=== PATIENT | female | born 1990 | race Two or more races ===

== ENCOUNTER 2020-03-24 19:07 | Emergency (ER) | payer MEDICAID ==
[~2020-03-24] VITALS: Ht 167.6 cm; Wt 67.8 kg
[~2020-03-24 19:07] MED LIST: ALBU2.5V11; MOME13HF2; PNV1TABL47
--- NOTE | 2020-03-24 19:27 | NUR ---
FIRST PT CONTACT: PT STATES SHE WAS TOLD TO COME IN TODAY BY HER OB AFTER CALLING TO TELL THEM SHE HAS BEEN BLEEDING SINCE March AND THOUGHT IT WAS HER PERIOD BUT SINCE THEN HASNT STOPPED. OB HAD HER TAKE A TEST, ALL THREE WERE POSITIVE. OB WANTS TO R/O ECTOPIC OR ANY OTHER ABNORMALITIES WITH THE PREGNANCIES. STATES SHE HAS ONLY SCANT-SMALL AMOUNTS OF BLOOD AND FEELS LIKE SHES SPOTTING. PT HAS A HX OF DIFFICULT PREGNANCIES IN THE PAST WITH HER SON BEING BORN AT 24 WEEKS.
--- NOTE | 2020-03-24 19:59 | NUR ---
PT RESTING IN [facility], [facility], AMBULATED TO AND FROM RESTROOM WITH A SMOOTH AND STEADY GAIT. AT BS, VSS, WCTM.
[2020-03-24 20:11] LABS: BASOPHILS # (AUTO) 0.09 x10^3/uL (0-0.1); BASOPHILS % (AUTO) 1 % (0-1); EOSINOPHILS # (AUTO) 0.67 x10^3/uL (0-0.4); EOSINOPHILS % (AUTO) 7 % (1-7); LYMPHOCYTES # (AUTO) 3.05 x10^3/uL (1-3.4); LYMPHOCYTES % (AUTO) 32 % (22-44); MD NO; MEAN CORPUSCULAR HEMOGLOBIN 29.1 pg (27.0-34.8); MEAN CORPUSCULAR HGB CONC 33.3 g/dL (32.4-35.8); MEAN CORPUSCULAR VOLUME 87.3 fL (80-100); MEAN PLATELET VOLUME 8.7 fL (7.4-10.4); MONOCYTES # (AUTO) 0.56 x10^3/uL (0.2-0.8); MONOCYTES % (AUTO) 6 % (2-9); NEUTROPHILS # (AUTO) 5.21 x10^3/uL (1.8-6.8); NEUTROPHILS % (AUTO) 54 % (42-75); PLATELET COUNT 323 x10^3/uL (130-400); RED BLOOD COUNT 4.72 x10^6/uL (3.82-5.3); RED CELL DISTRIBUTION WIDTH 12.8 % (9.6-15.2)
[2020-03-24 20:13] LABS: MICROSCOPIC NOT IND
--- NOTE | 2020-03-24 20:43 | NUR ---
LATE ENTRY: PT TO US VIA ROBBY URIAS, NO CHANGE IN CONDITION.
--- NOTE | 2020-03-24 21:21 | NUR ---
PT IN ULTRASOUND AT THIS TIME. WILL RECHECK VITALS WHEN BACK.
--- NOTE | 2020-03-24 21:31 | NUR ---
PT BACK FROM US. NAD, NO CHANGE IN CONDITION, AT , [facility].
--- NOTE | 2020-03-24 22:19 | NUR ---
PT RESTING ON GURNEY, AT , GIVEN WATER PER REQUEST. NAD. DENIES ANY ADDITIONAL NEEDS AT THIS TIME. WAITING FOR BALANCE TRUER CONSULT. WCTM.
[2020-03-24 22:21] VITALS: BP 108/71
--- NOTE | 2020-03-24 22:46 | NUR ---
Patient/SPOUSE given discharge instructions and they have confirmed that they understand the instructions. Patient ambulatory with steady gait. DENIES ADDITIONAL NEEDS OR QUESTIONS AT THIS TIME. NAD. VSS.
== END 2020-03-24 23:00 | disposition home or self-care (01) ==
LOC: ED 19:48
DX: O20.0 Threatened abortion (principal); R10.9 Unspecified abdominal pain; R55 Syncope and collapse; J45.909 Unspecified asthma, uncomplicated; Z3A.08 8 weeks gestation of pregnancy
CPT/HCPCS: 36415; 76801; 81003; 84702; 85025; 86901; 99285

== ENCOUNTER 2020-03-26 13:22 | Emergency (ER) | payer MEDICAID ==
[~2020-03-26] VITALS: Ht 165.1 cm; Wt 66.4 kg
[2020-03-26 14:40] LABS: BASOPHILS # (AUTO) 0.02 x10^3/uL (0-0.1); BASOPHILS % (AUTO) 0 % (0-1); EOSINOPHILS # (AUTO) 0.62 x10^3/uL (0-0.4); EOSINOPHILS % (AUTO) 9 % (1-7); LYMPHOCYTES # (AUTO) 2.17 x10^3/uL (1-3.4); LYMPHOCYTES % (AUTO) 30 % (22-44); MEAN CORPUSCULAR HEMOGLOBIN 29.1 pg (27.0-34.8); MEAN CORPUSCULAR HGB CONC 33.4 g/dL (32.4-35.8); MEAN CORPUSCULAR VOLUME 86.9 fL (80-100); MEAN PLATELET VOLUME 8.6 fL (7.4-10.4); MONOCYTES # (AUTO) 0.52 x10^3/uL (0.2-0.8); MONOCYTES % (AUTO) 7 % (2-9); NEUTROPHILS # (AUTO) 3.81 x10^3/uL (1.8-6.8); NEUTROPHILS % (AUTO) 53 % (42-75); PLATELET COUNT 330 x10^3/uL (130-400); RED BLOOD COUNT 4.76 x10^6/uL (3.82-5.3); RED CELL DISTRIBUTION WIDTH 12.8 % (9.6-15.2)
[2020-03-26 14:41] LABS: MD NO
[2020-03-26 15:22] VITALS: BP 117/63
--- NOTE | 2020-03-26 15:25 | NUR ---
OB PAGED BY JEFFREY PT UPDATED ON POC
== END 2020-03-26 15:59 | disposition home or self-care (01) ==
LOC: ED 14:38
DX: O20.0 Threatened abortion (principal); R10.9 Unspecified abdominal pain; Z3A.01 Less than 8 weeks gestation of pregnancy
CPT/HCPCS: 36415; 84702; 85025; 99283

== ENCOUNTER 2020-04-17 20:38 | Emergency (ER) | payer MEDICAID ==
[~2020-04-17] VITALS: Ht 165.1 cm; Wt 69.3 kg
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
[2020-04-17 21:27] LABS: BASOPHILS # (AUTO) 0.03 x10^3/uL (0-0.1); BASOPHILS % (AUTO) 0 % (0-1); EOSINOPHILS # (AUTO) 0.43 x10^3/uL (0-0.4); EOSINOPHILS % (AUTO) 5 % (1-7); LYMPHOCYTES # (AUTO) 2.43 x10^3/uL (1-3.4); LYMPHOCYTES % (AUTO) 28 % (22-44); MD NO; MEAN CORPUSCULAR HEMOGLOBIN 29.1 pg (27.0-34.8); MEAN CORPUSCULAR VOLUME 88.2 fL (80-100); MEAN PLATELET VOLUME 8.2 fL (7.4-10.4); MONOCYTES # (AUTO) 0.67 x10^3/uL (0.2-0.8); MONOCYTES % (AUTO) 8 % (2-9); NEUTROPHILS # (AUTO) 5.01 x10^3/uL (1.8-6.8); NEUTROPHILS % (AUTO) 59 % (42-75); PLATELET COUNT 332 x10^3/uL (130-400); RED BLOOD COUNT 4.46 x10^6/uL (3.82-5.3); RED CELL DISTRIBUTION WIDTH 12.4 % (9.6-15.2)
[2020-04-17] MEDS ORDERED: MORPHINE SULFATE 4 MG/ML, 1ML IVPush PRN (21:30)
[2020-04-17] MEDS ORDERED: ONDANSETRON 2MG/ML, 2ML IVPush ONE (21:30)
[2020-04-17 21:36] LABS: ALANINE AMINOTRANSFERASE 30 U/L (12-78); ALBUMIN 3.4 g/dL (3.4-5.0); ANION GAP 6 mmol/L (5-15); CHLORIDE 109 mmol/L (98-107); CREATININE 0.71 mg/dL (0.55-1.02)
[2020-04-17 21:41] LABS: ALKALINE PHOSPHATASE 66 U/L (45-117); BILIRUBIN,TOTAL 0.3 mg/dL (0.2-1.0); TOTAL PROTEIN 7.2 g/dL (6.4-8.2)
--- NOTE | 2020-04-17 21:53 | NUR ---
PT EDUCATED ON PLAN OF CARE. PT TO GET US INSTEAD OF CT BECAUSE OF THE CHANCE SHE MAY BE
--- NOTE | 2020-04-17 22:18 | NUR ---
REPORT RECEIVED FROM BUCKY SANFORD
[2020-04-17] MEDS ORDERED: ONDANSETRON 2MG/ML, 2ML ONE (22:27)
[2020-04-17] MEDS ORDERED: MORPHINE SULFATE 4 MG/ML, 1ML ONE (22:27)
--- NOTE | 2020-04-17 22:32 | NUR ---
PATIENT MEDICATED PER EMAR DUE TO UNBARABLE PAIN DURING SPLINTING
--- NOTE | 2020-04-17 22:50 | NUR ---
PATIENT IN US
[2020-04-17 23:30] VITALS: BP 111/74
--- NOTE | 2020-04-18 00:30 | NUR ---
CALL PLACED TO US TO GET UPDATE ON TRANSABD US. STATES HE WILL CONTACT STAT RAD
--- NOTE | 2020-04-18 01:27 | NUR ---
Patient given discharge instructions and they have confirmed that they understand the instructions. Patient ambulatory with steady gait.
== END 2020-04-18 01:29 | disposition home or self-care (01) ==
LOC: ED 21:28
DX: O03.4 Incomplete spontaneous abortion without complication (principal); S20.219A Contusion of unspecified front wall of thorax, initial encounter; S30.1XXA Contusion of abdominal wall, initial encounter; S50.311A Abrasion of right elbow, initial encounter; R10.13 Epigastric pain; M79.602 Pain in left arm; J45.909 Unspecified asthma, uncomplicated; V89.2XXA Person injured in unspecified motor-vehicle accident, traffic, initial encounter; Y93.89 Activity, other specified; Y92.410 Unspecified street and highway as the place of occurrence of the external cause; Y99.8 Other external cause status
CPT/HCPCS: 29125; 36415; 76700; 76856; 80053; 83690; 84702; 85025; 96374; 96375; 99285; J2270; J2405; 84703; 99284

== ENCOUNTER 2020-11-29 16:22 | Emergency (ER) | payer MEDICAID ==
[~2020-11-29] VITALS: Ht 167.6 cm; Wt 66.9 kg
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
[2020-11-29] MEDS ORDERED: SODIUM CHLORIDE 0.9% 1,000ML IVBOLUS ONE (17:00)
[2020-11-29] MEDS ORDERED: ONDANSETRON 2MG/ML, 2ML IVPush ONE (17:00)
[2020-11-29] MEDS ORDERED: ONDANSETRON 2MG/ML, 2ML ONE (17:11)
[2020-11-29 17:18] LABS: BASOPHILS % (AUTO) 1 % (0-1); EOSINOPHILS % (AUTO) 6 % (1-7); LYMPHOCYTES % (AUTO) 26 % (22-44); MEAN CORPUSCULAR HEMOGLOBIN 29.5 pg (27.0-34.8); MEAN CORPUSCULAR HGB CONC 34.9 g/dL (32.4-35.8); MEAN PLATELET VOLUME 7.9 fL (7.4-10.4); MONOCYTES % (AUTO) 7 % (2-9); NEUTROPHILS % (AUTO) 60 % (42-75); PLATELET COUNT 301 x10^3/uL (130-400); RED BLOOD COUNT 3.98 x10^6/uL (3.82-5.3); RED CELL DISTRIBUTION WIDTH 12.3 % (9.6-15.2)
[2020-11-29 17:20] LABS: MD NO
--- NOTE | 2020-11-29 17:24 | NUR ---
AFTER PT AMBULATED TO BATHROOM WITHOUT ASSISTANCE, RETURNED TO ROOM FEELING NAUSEATED. IV ESTABLISHED WITH BOLUS INFUSING AND MEDICATED FOR SAME.
[2020-11-29 17:30] LABS: ALANINE AMINOTRANSFERASE 10 U/L (12-78); ALBUMIN 2.9 g/dL (3.4-5.0); ANION GAP 6 mmol/L (5-15); CALCIUM 8.2 mg/dL (8.5-10.1); CHLORIDE 107 mmol/L (98-107); CREATININE 0.48 mg/dL (0.55-1.02)
[2020-11-29 17:41] LABS: MICROSCOPIC NOT IND
[2020-11-29 17:48] LABS: ALKALINE PHOSPHATASE 61 U/L (45-117); BILIRUBIN,TOTAL 0.1 mg/dL (0.2-1.0); TOTAL PROTEIN 6.9 g/dL (6.4-8.2)
--- NOTE | 2020-11-29 18:10 | NUR ---
ULTRASOUND AT BEDSIDE.
[2020-11-29 18:43] VITALS: BP 113/62
--- NOTE | 2020-11-29 18:47 | NUR ---
REPORT RECIEVED FROM BUCKY MATHUR
== END 2020-11-29 19:23 | disposition home or self-care (01) ==
LOC: ED 19:00
DX: O21.0 Mild hyperemesis gravidarum (principal); R10.2 Pelvic and perineal pain; R42 Dizziness and giddiness; M54.5 Low back pain; Z3A.08 8 weeks gestation of pregnancy
CPT/HCPCS: 36415; 76815; 80053; 81003; 84702; 85025; 93005; 96361; 96374; 99285; J2405; J7030

== ENCOUNTER 2021-01-16 19:03 | Outpatient (CLI) | payer MEDICAID ==
[~2021-01-16] VITALS: Ht 167.6 cm; Wt 70.0 kg
[2021-01-16 19:32] LABS: MICROSCOPIC NOT IND
[2021-01-16 19:41] VITALS: BP 119/60
== END 2021-01-16 21:50 | disposition home or self-care (01) ==
LOC: LDOP 19:03
PROVIDERS: ATTEND Obstetrics & Gynecology
DX: O26.892 Other specified pregnancy related conditions, second trimester (principal); R10.9 Unspecified abdominal pain; Z3A.21 21 weeks gestation of pregnancy
CPT/HCPCS: 76815; 76817; 81003; 87086; 99211; G0463

== ENCOUNTER 2021-03-07 18:04 | Emergency (ER) | payer MEDICAID ==
[~2021-03-07] VITALS: Ht 167.6 cm; Wt 76.3 kg
--- NOTE | 2021-03-07 19:14 | NUR ---
PT TO ROOM AT THIS TIME.
[2021-03-07] MEDS ORDERED: FAMOTIDINE 20 MG TABLET ONE (19:22)
[2021-03-07] MEDS ORDERED: DIPHENHYDRAMINE 25 MG CAPSULE ONE (19:22)
[2021-03-07] MEDS ORDERED: FAMOTIDINE 20 MG TABLET PO ONE (19:30)
[2021-03-07] MEDS ORDERED: DIPHENHYDRAMINE 25 MG CAPSULE PO ONE (19:30)
[2021-03-07 19:37] LABS: BASOPHILS % (AUTO) 1 % (0-1); EOSINOPHILS % (AUTO) 4 % (1-7); LYMPHOCYTES % (AUTO) 24 % (22-44); MEAN CORPUSCULAR HEMOGLOBIN 28.2 pg (27.0-34.8); MEAN CORPUSCULAR HGB CONC 34.7 g/dL (32.4-35.8); MEAN PLATELET VOLUME 8.4 fL (7.4-10.4); MONOCYTES % (AUTO) 9 % (2-9); NEUTROPHILS % (AUTO) 62 % (42-75); PLATELET COUNT 338 x10^3/uL (130-400); RED BLOOD COUNT 3.42 x10^6/uL (3.82-5.3); RED CELL DISTRIBUTION WIDTH 12.7 % (9.6-15.2)
--- NOTE | 2021-03-07 21:09 | NUR ---
REPORT TO BUCKY BARTON.
--- NOTE | 2021-03-07 21:10 | NUR ---
REPORT FROM MARY LAWLER
[2021-03-07 21:11] LABS: ALBUMIN 2.6 g/dL (3.4-5.0); ANION GAP 9 mmol/L (5-15); CALCIUM 8.8 mg/dL (8.5-10.1); CHLORIDE 106 mmol/L (98-107)
[2021-03-07 21:14] LABS: ALANINE AMINOTRANSFERASE 12 U/L (12-78); ALKALINE PHOSPHATASE 105 U/L (45-117); BILIRUBIN,TOTAL 0.1 mg/dL (0.2-1.0); CREATININE 0.43 mg/dL (0.55-1.02); TOTAL PROTEIN 6.9 g/dL (6.4-8.2)
[2021-03-07 21:55] VITALS: BP 107/58
== END 2021-03-07 22:08 | disposition home or self-care (01) ==
LOC: ED 21:43
DX: O26.893 Other specified pregnancy related conditions, third trimester (principal); R21 Rash and other nonspecific skin eruption; L50.9 Urticaria, unspecified; J45.909 Unspecified asthma, uncomplicated; Z3A.29 29 weeks gestation of pregnancy
CPT/HCPCS: 36415; 80047; 80053; 85025; 99284; J7512; Q0163

== ENCOUNTER 2021-03-13 17:44 | Observation (INO) | payer BC, OTHER ==
[~2021-03-13] VITALS: Ht 165.1 cm; Wt 74.1 kg
[2021-03-13 18:09] VITALS: BP 109/57
[2021-03-13] MEDS ORDERED: METO10TA82 PO (18:37)
[2021-03-13] MEDS ORDERED: ONDA4TAB7 PO (18:38)
[2021-03-13 20:22] LABS: MICROSCOPIC INDICATED
[2021-03-13] MEDS ORDERED: TERBUTALINE 1 MG/ML, 1ML ONE (22:23)
[2021-03-13] MEDS ORDERED: TERBUTALINE 1 MG/ML, 1ML SQ ONE (22:30)
[2021-03-13] MEDS ORDERED: niFEDipine ER 30 MG TABLET.ER PO ONE (23:30)
[2021-03-13] MEDS ORDERED: ACET-1600 PO (23:35)
== END 2021-03-13 23:42 | disposition home or self-care (01) ==
LOC: LDOP 17:44 → LDIP 19:35
PROVIDERS: ADMIT Obstetrics & Gynecology; ATTEND Obstetrics & Gynecology
DX: O62.9 Abnormality of forces of labor, unspecified (principal); Z3A.28 28 weeks gestation of pregnancy; Z79.899 Other long term (current) drug therapy
CPT/HCPCS: 59025; 76830; 81001; 87086; 96372; G0378; J3105

== ENCOUNTER 2021-03-28 21:11 | Outpatient (CLI) | payer BC, OTHER ==
[~2021-03-28] VITALS: Ht 165.1 cm; Wt 74.0 kg
[~2021-03-28 21:11] MED LIST changes: +ACET-1600 PO; +METO10TA82 PO; +ONDA4TAB7 PO
[2021-03-28 22:05] LABS: MICROSCOPIC INDICATED
[2021-03-28 23:00] VITALS: BP 114/58
== END 2021-03-29 00:08 | disposition home or self-care (01) ==
LOC: LDOP 21:11
PROVIDERS: ATTEND Obstetrics & Gynecology
DX: O26.893 Other specified pregnancy related conditions, third trimester (principal); R10.9 Unspecified abdominal pain; Z3A.31 31 weeks gestation of pregnancy
CPT/HCPCS: 59025; 81001; 87086